=== PATIENT | female | born 1945 | race Two or more races ===

== ENCOUNTER 2022-02-12 06:11 | Day surgery (SDC) | payer OTHER, MEDICAID ==
[2022-02-12] VITALS (8 sets, daily range): BP systolic 87–130; BP diastolic 50–57
[~2022-02-12] VITALS: Ht 144.8 cm; Wt 90.7 kg
[~2022-02-12 06:11] MED LIST: ASPI-543 PO; ATOR10TA52 PO; LEVO100T8 PO; METO25TA93 PO
[2022-02-12] MEDS ORDERED: LIDOCAINE 2%HCL (LOCAL ANESTH.) INJ 20ML MDV ONE (08:43)
[2022-02-12] MEDS ORDERED: IOHEXOL 350 MG/ML 100ML IJ ONE (08:43)
[2022-02-12] MEDS ORDERED: IODIXANOL 320MG/ML 100ML BTL IV ONE (08:44)
[2022-02-12] MEDS ORDERED: fentaNYL CITRATE 100 MCG/2 ML VL ONE (08:47)
[2022-02-12] MEDS ORDERED: ANGIOMAX 250 MG VIAL IV ONE (08:47)
[2022-02-12] MEDS ORDERED: SODIUM CHL 0.9% 0 ML ONE (08:48)
[2022-02-12] MEDS ORDERED: HEPARIN SODIUM (PORCINE) 5000 UNITS/ML 1ML VIAL ONE (08:48)
[2022-02-12] MEDS ORDERED: VERAPAMIL 2.5MG/ML INJ 2ML VIAL IV ONE (08:48)
[2022-02-12] MEDS ORDERED: MIDAZOLAM HCL 2MG/2ML 2ml VIAL (1mg/ml) ONE (08:48)
== END 2022-02-12 12:03 | disposition home or self-care (01) ==
LOC: CATH 06:11
PROVIDERS: ATTEND Internal Medicine Cardiovascular Disease
DX: I11.9 Hypertensive heart disease without heart failure (principal); I77.1 Stricture of artery; R06.09 Other forms of dyspnea; R07.89 Other chest pain; E66.9 Obesity, unspecified; E03.9 Hypothyroidism, unspecified; Z90.710 Acquired absence of both cervix and uterus; Z98.890 Other specified postprocedural states; Z98.891 History of uterine scar from previous surgery; M06.9 Rheumatoid arthritis, unspecified; Z20.822 Contact with and (suspected) exposure to COVID-19
CPT/HCPCS: 93458; C1769; C1887; C1894; J1644; J2250; J3010; Q9967; U0003; 99152